=== PATIENT | male | born 1975 | race Caucasian/White ===

== ENCOUNTER 2019-11-28 14:12 | Outpatient (REF) | payer BC, SELFPAY | END 2019-11-28 14:32 | LOC: NCHCN 14:12 | PROVIDERS: PCP Family Medicine; Visit Provider Registered Nurse | DX: R30.0 Dysuria (principal) | CPT/HCPCS: 87077; 87086; 87186 ==

== ENCOUNTER 2019-12-25 17:40 | Outpatient (REF) | payer BC, SELFPAY | END 2019-12-25 18:00 | LOC: NCHCN 17:40 | PROVIDERS: PCP Family Medicine; Visit Provider Family Medicine | DX: R30.0 Dysuria (principal) | CPT/HCPCS: 87077; 87086; 87186 ==

== ENCOUNTER 2020-02-21 15:55 | Outpatient (REF) | payer BC, SELFPAY ==
[2020-02-21 21:10] LABS: Anion Gap 8.4 mmol/L (3-11); BUN 13 mg/dL (7-18); CO2 25.6 mmol/L (21.0-32.0); CREATININE 1.02 mg/dL (0.70-1.30); Calcium 9.1 mg/dL (8.5-10.1); Chloride 106 mmol/L (98-107); Glucose 90 mg/dL (74-106); Potassium 4.4 mmol/L (3.5-5.1); Sodium 140 mmol/L (136-145)
== END 2020-02-21 16:15 ==
LOC: NCHCN 15:55
PROVIDERS: PCP Family Medicine; Visit Provider Internal Medicine
DX: R30.0 Dysuria (principal)
CPT/HCPCS: 80048